=== PATIENT | female | born 1985 | race Caucasian/White ===

== ENCOUNTER → 2016-07-15 | Day surgery (SDC) | payer OTHER ==
--- NOTE | 2016-07-14 18:20 | History & Physical Pre-Op ---
General Information and HPI History of Present Illness: The patient is a 29-year-old 1 para 0 LMP 2 weeks ago with a 6 cm right ovarian cyst causing pelvic pain and pressure who is admitted today for laparoscopic excision of right ovarian cyst. CA125 is 10. Past History Surgical History Pertinent Surgical History: none Review of Systems Review of Systems: Pelvic pain Review of Systems Constitutional: Reports: no symptoms. EENTM: Reports: no symptoms. Cardiovascular: Reports: no symptoms. Respiratory: Reports: no symptoms. GI: Reports: abdominal pain. Genitourinary: Reports: see HPI. Musculoskeletal: Reports: no symptoms. Skin: Reports: no symptoms. Neurological/Psychological: Reports: no symptoms. Hematologic/Endocrine: Reports: no symptoms. Immunologic/Allergic: Reports: no symptoms. All Other Systems: Reviewed and Negative Exam & Diagnostic Data Last 24 Hrs of Vital Signs/I&O Intake & Output / 1600 02/ 0800 / 0000 Intake Total Output Total Balance Patient 128 lb Weight Physical Exam: HEENT: Normocephalic atraumatic neck: No thyromegaly Chest: Clear to auscultation bilaterally Cardiovascular: Normal S1, S2 Abdomen: Soft, nontender, no mass Pelvic: Deferred to the OR Extremities: No clubbing cyanosis or edema Neurologic: Nonfocal Assessment/Plan Assessment/Plan: Right ovarian cyst Laparoscopic excision of right ovarian cyst As Ranked By This Provider Problem List: 1. Right ovarian cyst
[~2016-07-15] VITALS: Ht 154.9 cm; Wt 58.1 kg
--- NOTE | 2016-07-20 18:14 | Operative Report ---
Operative/Inv Procedure Report Surgery Date: 07/15/16 Name of Procedure: Laparoscopic right ovarian cystectomy Pre-Operative Diagnosis: Right ovarian cyst Post-Operative Diagnosis: Same Estimated Blood Loss: less than 50ml Surgeon/Oil Well Driller: VICK WHITNEY MD Anesthesia: general endotracheal tube Operative/Procedure Note Note: The patient was brought to the operating room placed on the OR table in the dorsal supine position. She was given adequate general anesthesia and successfully intubated. She was then repositioned in a modified dorsal lithotomy with. She is prepped and draped in usual sterile fashion. Venodyne boots were placed. A Alcantar catheter was placed. A weighted speculum was inserted into the vagina and a single-tooth tenaculum was attached to the anterior lip of the cervix. An acorn cannula was then inserted into the cervical os and attached to the tenaculum. Attention was then paid to the abdomen and the surgeon's gloves were changed. An infraumbilical skin incision was made with the scalpel and a Veress needle was placed into the abdominal cavity. The abdomen was insufflated with CO2 gas under high flow and low pressure until an adequate pneumoperitoneum had been achieved. This point the Veress needle was removed and replaced with a 5 mm disposable trocar. Through the sleeve of the trocar camera was placed revealed good anatomic position and hemostasis. Patient was then placed into Trendelenburg position. A suprapubic stab incision was made with scalpel and a 5 mm disposable trocar was inserted under direct visualization. Through this trocar site a blunt probe was used for manipulation of the organs. Examination of the pelvic organs revealed a 6 cm right ovarian cyst which appeared to be benign. The left ovary was normal as well as the uterus and fallopian tubes bilaterally. Irrigation was was used in the pelvis and pelvic washings were obtained and sent to the pathologist. On a second lower incision length was made with the scalpel in the left lower quadrant and a 5 mm disposable trocar was inserted under direct visualization. Through this lower port a grasper was placed and grasped the right ovary. The right ovary was then aspirated of approximately 60 mL of clear straw-colored fluid. This was sent to cytology as well. He is in the electrode bipolar cautery and opening was made in the ovarian cysts and this was extended. A window of the ovarian cyst was removed along with the ovarian tissue. Hemostasis was good. The pelvis and abdomen were copiously irrigated and hemostasis was verified. The CO2 gas was allowed to escape the abdomen and the incisions were closed using 3-0 Polysorb in an interrupted subcuticular fashion. Dressings were dressed she's been the ones were dressed vaginal entrance was removed the patient was awakened and sent to recovery in good condition. All needle, sponge, and instrument counts were correct at the end of the procedure 2.
== END ==
LOC: STS 03:04
DX: N83.201 Unspecified ovarian cyst, right side (principal)
CPT/HCPCS: 81025; 88305; J0131; J2250

== ENCOUNTER → 2016-11-25 | Day surgery (SDC) | payer OTHER ==
[~2016-11-25] VITALS: Ht 154.9 cm; Wt 59.0 kg
--- NOTE | 2016-11-25 07:54 | History & Physical Pre-Op ---
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 She is presenting today for repeat ovarian cystectomy and complaining of right lower quadrant pain presumably originating from the cyst. Past History Surgical History Pertinent Surgical History: none, laparoscopic ovarian cystectomy, right ankle surgery, elbow surgery Review of Systems Review of Systems Constitutional: Reports: no symptoms. EENTM: Reports: no symptoms. Cardiovascular: Reports: no symptoms. Respiratory: Reports: no symptoms. GI: Reports: no symptoms. Genitourinary: Reports: no symptoms. Musculoskeletal: Reports: no symptoms. Skin: Reports: no symptoms. Neurological/Psychological: Reports: no symptoms. Hematologic/Endocrine: Reports: no symptoms. Immunologic/Allergic: Reports: no symptoms. All Other Systems: Reviewed and Negative Exam & Diagnostic Data Physical Exam: HEENT: Normocephalic atraumatic Chest: Clear to auscultation bilaterally Cardiovascular: Normal S1-S2 Abdomen: Soft nontender no mass Pelvic: Deferred to the OR Extremities: No clubbing cyanosis or edema Neurologic: Nonfocal Assessment/Plan Assessment/Plan: Persistent right ovarian cyst Plan laparoscopic excision As Ranked By This Provider Problem List: 1. Right ovarian cyst
--- NOTE | 2016-12-08 11:17 | Operative Report ---
Operative/Inv Procedure Report Surgery Date: 11/25/16 Name of Procedure: Laparoscopic excision of right ovarian cyst Pre-Operative Diagnosis: Right ovarian cyst Post-Operative Diagnosis: Same Estimated Blood Loss: scant Surgeon/Vegetable Tier: VICK WHITNEY MD Anesthesia: general endotracheal tube Operative/Procedure Note Note: The patient was brought to the operating room and placed on the OR table in dorsal supine position. She was given adequate general anesthesia and successfully intubated. She was then repositioned in modified dorsal prepped and draped in usual sterile fashion. Single-tooth tenaculum was attached to the anterior lip of the cervix and an acorn cannula was attached cervix and the tenaculum. Alcantar catheter was placed and drained clear yellow urine. Surgeon's gloves were then changed and attention was taken to the abdomen. An infraumbilical skin incision was made with the scalpel and a Veress needle was placed into the abdominal cavity. The abdomen was insufflated with CO2 gas under high flow and low pressure until an adequate pneumoperitoneum had been achieved. At this point the Veress needle was removed and replaced with a 5 mm disposable trocar. The trocar sleeve and camera was placed and good hemostasis and anatomic location noted. The patient was then placed into Trendelenburg position. A suprapubic stab incision was made with a scalpel and a 5 mm disposable trocar was inserted under direct visualization. Through this trocar sleeve appoint approaches to manipulate the pelvic organs. The uterus appeared to be normal. There was a 3 cm cyst on the right ovary. Left ovary appeared normal. A second trocar was introduced in the right lower quadrant under direct visualization 5 mm. 2 lower quadrants and specimens were manipulated to grasp the cyst as the cyst fluid was aspirated then excised using cautery. The cyst was then removed through the site. At the end of the procedure hemostasis was good the isthmus removed and the CO2 gas was allowed to escape the abdomen. The incisions sites were closed with 0 Polysorb in an interrupted fashion and dressed. The patient was then awakened and sent to recovery in good condition All needle, sponge, and aspirin counts are correct end of the procedure 2.
== END ==
LOC: STS 03:26
DX: N83.201 Unspecified ovarian cyst, right side (principal); K21.9 Gastro-esophageal reflux disease without esophagitis
CPT/HCPCS: 81025; 88305; J0131; J2250